=== PATIENT | female | born 1955 ===

== ENCOUNTER 2020-06-29 08:10 | Outpatient (CLI) | payer BC ==
--- NOTE | 2020-06-29 09:06 | BD ---
EXAM: Bone densitometry using DEXA HISTORY: 65 yo female. Screening for postmenopausal osteoporosis FINDINGS: L1--bone mineral density 0.799 g/sq cm; T score -1 7 ; Z score -0.2 L2--bone mineral density 0.868 g/sq cm; T score -1.5 ; Z score 0.2 L3--bone mineral density 0.846 g/sq cm; T score -2.2 ; Z score -0.4 L4--bone mineral density 0.757 g/sq cm; T score -2.8 ; Z score -0.9 Total L1-L4--bone mineral density 0.817 g/sq cm; T score -2.1 ; Z score -0.4 Left femoral neck--bone mineral density0.647; T score -1.8 ; Z score -0.4 Total proximal left femur--bone mineral density 0.877; T score -0.5 ; Z score 0.6 The 10 year fracture risk for a major osteoporotic fracture is 9.2% and for a hip fracture is 1.2%. IMPRESSION: Osteopenia
== END 2020-06-29 08:11 | disposition home or self-care (01) ==
LOC: BICMAMMO 08:10
PROVIDERS: ATTEND Obstetrics & Gynecology
DX: Z13.820 Encounter for screening for osteoporosis (principal); M85.89 Other specified disorders of bone density and structure, multiple sites
CPT/HCPCS: 77080